=== PATIENT | female | born 1960 | race American Indian/Alaskan Native ===

== ENCOUNTER 2017-01-27 18:21 | Emergency (ER) | payer SELFPAY ==
--- NOTE | 2017-01-27 20:06 | Emergency Department Report ---
Chief Complaint: Chest Pain Stated Complaint: CHEST PAIN Time Seen by Provider: 01/27/17 20:03 - HPI History of Present Illness: Patient is a 56-year-old female that presents with left-sided chest pain 2 days and positive for shortness of breath. She denies nausea, vomiting, dizziness. And states she does not have a history of this chest pain. She cannot recall what makes it worse or what makes it better. She does admit that it is 3/10 she has a history of hypertension and she takes lisinopril 10 mg daily. - ROS Review of Systems: All other systems unremarkable except documentation in HPI - Exam Vital Signs: Vital Signs 01/27/17 19:28 Temperature 98.5 F Pulse Rate 101 H Respiratory 20 Rate Blood Pressure 143/97 [Right] O2 Sat by Pulse 100 Oximetry Physical Exam: Gen: Female well-developed and nourished, no apparent distress noted, ambulatory. Cardiovascular: Heart sounds present S1-S2, no murmur, gallop, edema or ectopy noted, 2+ pulses upper and lower extremities Respiratory: Chest symmetry with respirations, lungs clear to auscultate upper and lower lobes, respirations even and unlabored, no rales, rhonchi, crackles noted. MS: Reproducible tenderness to left chest wall. Psych: AxOx3, answers questions appropriately, mood full range, affect normal, normal speech and tone. MSE screening note: Focused history and physical exam performed. Due to findings the following was ordered: seen by provider, laboratory and radiology studies ordered, and to go to main ED to be seen by physician ED Medical Decision Making - Medical Decision Making seen by provider, laboratory and radiology studies ordered, and to go to main ED to be seen by physician ED Disposition for MSE Condition: Stable
[2017-01-27 21:07] LABS: Basophils % (Auto) 1.5 % (0.0-1.8); Eosinophils % (Auto) 2.9 % (0.0-4.3); Hematocrit 38.2 % (30.3-42.9); Hemoglobin 12.5 gm/dl (10.1-14.3); Mean Corpuscular HGB Conc 33 % (30-34); Mean Corpuscular Hemoglobin 31 pg (28-32); Mean Corpuscular Volume 94 fl (79-97); Platelet Count 175 K/mm3 (140-440); Red Blood Count 4.08 M/mm3 (3.65-5.03); White Blood Count 3.8 K/mm3 (4.5-11.0)
[2017-01-27 21:15] LABS: Red Cell Distribution Width 21.5 % (13.2-15.2)
[2017-01-27 21:28] LABS: Anion Gap 27 mmol/L; Blood Urea Nitrogen 8 mg/dL (7-17); Calcium 8.7 mg/dL (8.4-10.2); Carbon Dioxide 26 mmol/L (22-30); Chloride 98.7 mmol/L (98-107); Glucose 76 mg/dL (65-100); Potassium 3.4 mmol/L (3.6-5.0); Sodium 148 mmol/L (137-145)
[2017-01-28] MEDS ORDERED: NITROSTAT SL PRN (03:32)
--- NOTE | 2017-01-28 03:33 | Emergency Department Report ---
ED General Adult HPI - General Chief complaint: Chest Pain Stated complaint: CHEST PAIN Time Seen by Provider: 01/27/17 20:03 Source: patient, EMS (ems notes not available at time of chart dictation), RN notes reviewed, old records reviewed Mode of arrival: Ambulatory Limitations: No Limitations - History of Present Illness Initial comments: This is a 56-year-old female. She is previously unknown to me. Her primary care doctor is at [facility], but she hasn't really followed up. She has a past medical history of hypertension. Patient presents to the ER complaining of chest pain. Chest pain is upper and left chest. Associated with shortness of breath. Positive palpitations. Patient endorses recent trip to [place] 3 weeks ago. No cocaine use. No homicidality or suicidality. Occasional alcohol intake. No recent stress test that she can recall. She cannot describe exacerbating or relieving factors. There is no radiation of the chest pain. -: Gradual Location: chest Severity scale (0 -10): 3 Quality: aching Consistency: intermittent Improves with: none Worsens with: none Associated Symptoms: chest pain - Related Data Allergies Allergy/AdvReac Type Severity Reaction Status Date / Time No Known Allergies Allergy Unverified 01/21/17 17:53 ED Review of Systems ROS: Stated complaint: CHEST PAIN Other details as noted in HPI Constitutional: denies: fever Eyes: denies: vision change ENT: denies: epistaxis Respiratory: shortness of breath Cardiovascular: chest pain Gastrointestinal: denies: vomiting Musculoskeletal: denies: myalgia Skin: denies: lesions Neurological: denies: confusion Psychiatric: denies: suicidal thoughts ED Past Medical Hx - Past Medical History Previous Medical History?: Yes Hx Hypertension: Yes - Surgical History Past Surgical History?: Yes Additional Surgical History: tubal ligation - Social History Smoking Status: Never Smoker Substance Use Type: None ED Physical Exam - General Limitations: No Limitations General appearance: alert, in no apparent distress - Head Head exam: Present: atraumatic, normocephalic - Eye Eye exam: Present: normal appearance, EOMI. Absent: nystagmus - ENT ENT exam: Present: normal exam, normal orophraynx, mucous membranes moist, normal external ear exam - Neck Neck exam: Present: normal inspection, full ROM. Absent: tenderness, meningismus - Respiratory Respiratory exam: Present: normal lung sounds bilaterally. Absent: respiratory distress, wheezes, rales, rhonchi, stridor, chest wall tenderness, accessory muscle use, decreased breath sounds, prolonged expiratory - Cardiovascular Cardiovascular Exam: Present: regular rate, normal rhythm, normal heart sounds. Absent: bradycardia, tachycardia, irregular rhythm, systolic murmur, diastolic murmur, rubs, gallop - GI/Abdominal GI/Abdominal exam: Present: soft, normal bowel sounds. Absent: distended, tenderness, guarding, rebound, rigid, pulsatile mass - Extremities Exam Extremities exam: Present: normal inspection, full ROM, normal capillary refill. Absent: tenderness, pedal edema, joint swelling, calf tenderness - Back Exam Back exam: Present: normal inspection - Neurological Exam Neurological exam: Present: alert, oriented X3, other (Extraocular movements intact. Tongue midline. No facial droop. Facial sensation intact to light touch in the V1, V2, V3 distribution bilaterally. 5 and 5 strength in 4 extremities.. Sensation is intact to light touch in 4 extremities.). Absent: motor sensory deficit - Psychiatric Psychiatric exam: Absent: homicidal ideation, suicidal ideation - Skin Skin exam: Present: warm, dry, intact, normal color. Absent: rash ED Course Vital Signs 01/27/17 19:28 Temperature 98.5 F Pulse Rate 101 H Respiratory 20 Rate Blood Pressure 143/97 [Right] O2 Sat by Pulse 100 Oximetry - Reevaluation(s) Reevaluation #1: 01/28/17 04:42 Differential diagnosis: GERD, gastritis, acute coronary syndrome, pulmonary embolus Assessment and plan: 56-year-old female with chest pain and shortness of breath. Abnormal EKG, no prior for comparison. Multiple negative troponins. Has some vascular risk factors. Low risk by well's criteria, d-dimer is negative. Given abnormal EKG, description of symptoms, patient to be admitted for acute coronary syndrome risk stratification. X-ray of the chest is unremarkable, and a d-dimer was negative. Patient is somewhat intoxicated but pleasant, she is not homicidal or suicidal, and she is able to offer a fairly lucid history. The Hospital physician, Dr. Muhammad, accepts the patient to her service. ED Medical Decision Making - Lab Data Result diagrams: 01/27/17 20:56 01/27/17 20:56 Vital Signs 01/27/17 19:28 Temperature 98.5 F Pulse Rate 101 H Respiratory 20 Rate Blood Pressure 143/97 [Right] O2 Sat by Pulse 100 Oximetry Lab Results 01/27/17 01/27/17 01/27/17 Range/Units 20:56 20:56 20:56 WBC 3.8 L (4.5-11.0) K/mm3 RBC 4.08 (3.65-5.03) M/mm3 Hgb 12.5 (10.1-14.3) gm/dl Hct 38.2 (30.3-42.9) % MCV 94 (79-97) fl MCH 31 (28-32) pg MCHC 33 (30-34) % RDW 21.5 H (13.2-15.2) % Plt Count 175 (140-440) K/mm3 Lymph % (Auto) 49.4 H (13.4-35.0) % Sherman % (Auto) 8.1 H (0.0-7.3) % Eos % (Auto) 2.9 (0.0-4.3) % Baso % (Auto) 1.5 (0.0-1.8) % Lymph # 1.9 (1.2-5.4) K/mm3 Sherman # 0.3 (0.0-0.8) K/mm3 Eos # 0.1 (0.0-0.4) K/mm3 Baso # 0.1 (0.0-0.1) K/mm3 Seg Neutrophils % 38.1 L (40.0-70.0) % Seg Neutrophils # 1.5 L (1.8-7.7) K/mm3 D-Dimer (0-234) ng/mlDDU Sodium 148 H (137-145) mmol/L Potassium 3.4 L (3.6-5.0) mmol/L Chloride 98.7 (98-107) mmol/L Carbon Dioxide 26 (22-30) mmol/L Anion Gap 27 mmol/L BUN 8 (7-17) mg/dL Creatinine 0.4 L (0.7-1.2) mg/dL Estimated GFR > 60 ml/min BUN/Creatinine Ratio 20.00 % Glucose 76 (65-100) mg/dL Calcium 8.7 (8.4-10.2) mg/dL Troponin T < 0.010 (0.00-0.029) ng/mL HCG, Qual Negative (Negative) Plasma/Serum Alcohol (0-0.07) gm% 01/27/17 01/27/17 01/28/17 Range/Units 20:56 23:14 03:04 WBC (4.5-11.0) K/mm3 RBC (3.65-5.03) M/mm3 Hgb (10.1-14.3) gm/dl Hct (30.3-42.9) % MCV (79-97) fl MCH (28-32) pg MCHC (30-34) % RDW (13.2-15.2) % Plt Count (140-440) K/mm3 Lymph % (Auto) (13.4-35.0) % Sherman % (Auto) (0.0-7.3) % Eos % (Auto) (0.0-4.3) % Baso % (Auto) (0.0-1.8) % Lymph # (1.2-5.4) K/mm3 Sherman # (0.0-0.8) K/mm3 Eos # (0.0-0.4) K/mm3 Baso # (0.0-0.1) K/mm3 Seg Neutrophils % (40.0-70.0) % Seg Neutrophils # (1.8-7.7) K/mm3 D-Dimer (0-234) ng/mlDDU Sodium (137-145) mmol/L Potassium (3.6-5.0) mmol/L Chloride (98-107) mmol/L Carbon Dioxide (22-30) mmol/L Anion Gap mmol/L BUN (7-17) mg/dL Creatinine (0.7-1.2) mg/dL Estimated GFR ml/min BUN/Creatinine Ratio % Glucose (65-100) mg/dL Calcium (8.4-10.2) mg/dL Troponin T < 0.010 < 0.010 (0.00-0.029) ng/mL HCG, Qual (Negative) Plasma/Serum Alcohol 0.37 H (0-0.07) gm% 01/28/17 Range/Units 03:38 WBC (4.5-11.0) K/mm3 RBC (3.65-5.03) M/mm3 Hgb (10.1-14.3) gm/dl Hct (30.3-42.9) % MCV (79-97) fl MCH (28-32) pg MCHC (30-34) % RDW (13.2-15.2) % Plt Count (140-440) K/mm3 Lymph % (Auto) (13.4-35.0) % Sherman % (Auto) (0.0-7.3) % Eos % (Auto) (0.0-4.3) % Baso % (Auto) (0.0-1.8) % Lymph # (1.2-5.4) K/mm3 Sherman # (0.0-0.8) K/mm3 Eos # (0.0-0.4) K/mm3 Baso # (0.0-0.1) K/mm3 Seg Neutrophils % (40.0-70.0) % Seg Neutrophils # (1.8-7.7) K/mm3 D-Dimer 150.01 (0-234) ng/mlDDU Sodium (137-145) mmol/L Potassium (3.6-5.0) mmol/L Chloride (98-107) mmol/L Carbon Dioxide (22-30) mmol/L Anion Gap mmol/L BUN (7-17) mg/dL Creatinine (0.7-1.2) mg/dL Estimated GFR ml/min BUN/Creatinine Ratio % Glucose (65-100) mg/dL Calcium (8.4-10.2) mg/dL Troponin T (0.00-0.029) ng/mL HCG, Qual (Negative) Plasma/Serum Alcohol (0-0.07) gm% - EKG Data When compared to previous EKG there are: previous EKG unavailable 01/28/17 04:43 normal sinus, 86 bpm, left axis deviation, poor R progression noted, Q waves noted in the inferior leads, abnormal EKG, not morphologically consistent with STEMI. - Radiology Data Radiology results: image reviewed interpreted by me: X-ray of the chest is negative for acute disease. Critical care attestation.: If time is entered above; I have spent that time in minutes in the direct care of this critically ill patient, excluding procedure time. ED Disposition Clinical Impression: Abnormal EKG, Chest pain Disposition: OP ADMITTED IP TO THIS HOSP Is pt being admited?: Yes Does the pt Need Aspirin: Yes Condition: Good Instructions: Chest Pain (ED) Referrals: PRIMARY CARE,MD [Primary Care Provider] - 3-5 Days
[2017-01-28] MEDS ORDERED: BABY ASPIRIN PO ONE (04:44)
--- NOTE | 2017-01-28 04:51 | Admit Criteria Form ---
Admission Criteria Documentation: CARDIOLOGY GRG Clinical Indications for Admission to Inpatient Care ( Place 'X' for any and all applicable criteria): Hospital admission is needed for appropriate care of the patient because of ANY ONE of the following (1): [ ] I. Hemodynamic instability as indicated by ALL of the following (1)(2)(3) (4)(5) [ ]a) Vital signs or other findings not as expected for chronic patient condition or baseline [ ]b) Instability indicated by ANY ONE of the following: [ ]i) Hypotension [ ]ii) Symptomatic Tachycardia unresponsive to treatment ( e.g., analgesia, fluids, sedation as indicated) [ ]iii) Inadequate perfusion indicated by ANY ONE of the following: [ ] 1) Lactic acidosis (> 2 mmol/L) [ ] 2) New abnormal capillary refill (> 3 seconds) [ ] 3) Reduced urine output [ ] 4) New altered mental status [ ]iv) Orthostatic vital sign changes unresponsive to treatment (e.g., fluids) [ ]v) IV inotropic or vasopressor medication required to maintain adequate blood pressure or perfusion [ ] II. Severe heart failure as indicated by ANY ONE of the following(17)(18) [ ]a) Respiratory distress [ ]b) Hypotension [ ]c) Anasarca (refractory to outpatient therapy) [ ]d) Cardiac arrhythmias of immediate concern [ ]e) Myocardial ischemia [ ] III. Cardiac arrhythmias or findings of immediate concern indicated by ANY ONE of the following (19)(20): [ ] a) Heart rhythms that are inherently dangerous or unstable indicated by ANY ONE of the following (21)(22)(23): [ ] i) Resuscitated ventricular fibrillation or cardiac arrest [ ] ii) Ventricular escape rhythm [ ] iii) Sustained ventricular tachycardia (30 seconds or more of ventricular rhythm at greater than 100 beats per minute) [ ] iv) Nonsustained ventricular tachycardia and ANY ONE of the following: [ ] 1) Suspected cardiac ischemia as cause or consequence of ventricular tachycardia [ ] 2) In setting of acute myocarditis [ ] b) Unstable cardiac conduction defects indicated by ANY ONE of the following(23)(24)(25) [ ] i) Type II second-degree atrioventricular block [ ]ii) Third-degree atrioventricular block [ ]iii) New-onset left bundle branch block with suspected myocardial ischemia [ ]c) Any heart rhythm and ANY ONE of the following (21)(22)(26)(27) (28) [ ] i) Continuous long-term ECG monitoring needed (e.g., initiation of drug requiring monitoring for more than 24 hours) [ ] ii) Patient has automatic implanted cardioverter defibrillator that is repeatedly firing, malfunctioning, or in need of immediate adjustment of settings beyond the scope of ambulatory or observation care [ ]d) Heart rhythms of concern due to ANY ONE of the following: [ ] i) Hypotension [ ] ii) Respiratory distress [ ] iii) Association with other significant symptoms (e.g., bradycardia with syncope or ongoing dizziness, supraventricular tachycardia with chest pain (14)(15)(17) [ ] IV. Monitoring for cardiac contusion beyond the scope of observation care needed [A](30)(31)(32) [ ] V. Surgical or device complication (e.g., valve replacement complication , pacemaker dysfunction) (35)(41)(44)(45)(46) [ ] . Inpatient palliative care needed. [B](49) Also use Inpatient Palliative Care Criteria [ ] VII. Nonbacterial thrombotic (marantic) endocarditis (36)(43)(47)(48) [X ] VIII. Cardiology condition, symptom, or finding for which emergency and observation care has failed or are not considered appropriate. [ ] IX. Acute valvular disease requiring inpatient as indicated by ANY ONE of the following (41) [ ]a) Acute valvular regurgitation (42) [ ]b) Noninfectious valvulitis (43) [ ]c) Obstructive valve thrombosis [ ]d) Paravalvular leak [ ]e) Other significant valvular disorder remaining after emergency or observation level of care (as appropriate) [ ]X. Pericardial disease requiring inpatient treatment as indicated by ANY ONE of the following (33)(34)(35)(36)(37) [ ]a) Suspected tamponade (38)(39)(40) [ ]b) Hemopericardium [ ]c) Other significant pericardial disorder remaining after emergency or observation level of care (as appropriate) [ ] XI. Cardiac ischemia beyond scope of emergency and observation care. [ ] XII. Hypertension requiring inpatient treatment as indicated by ANY ONE of the following (6)(7)(8) [ ]a) SBP greater than 220 mm Hg or DBP greater than 120 mmHg despite treatment [ ]b) SBP greater than 140 mm Hg or DBP greater than 100 mm Hg with evidence of acute end organ damage as indicated by ANY ONE of the following [ ] i) Altered mental status [ ] ii) Acute renal failure as indicated by new onset of ANY ONE of the following (9)(10)(11)(12)(13) [ ]1) 3-fold rise in serum creatinine from baseline [ ]2) Serum creatinine greater than 4 mg/dL ( 354 micromoles/L) with acute rise greater than 0.5 mg/dL (44.2 micromoles/L) [ ]3) Reduction of more than 75% in estimated glomerular filtration rate from baseline [ ]4) Estimated glomerular filtration rate less than 35 mL/min/1.73m2 (0.59 mL/sec/1.73m2) in child up to 18 years of age [ ]5) Cessation of urine output indicated by ALL of the following [ ]A. Adequate volume status [ ]B. Inadequate urine output as indicated by ANY ONE of the following [ ]a. Urine output less than 0.3 mL/kg/hr for 24 hours [ ]b. Anuria (urine output less than 0.1 mL/kg/hr) for 12 hours [ ] iii) Aortic dissection [ ] iv) Myocardial Ischemia [ ] v) Left ventricular heart failure [ ]vi) Retinal Hemorrhage [ ]vii) Other significant finding [ ]c) Hypertension in child requiring inpatient treatment as indicated by ALL of the following(14)(15)(16) [ ] i) Outpatient treatment not effective, not available, or not appropriate [ ]ii) SBP or DBP greater than 95th percentile for age [ ]iii) Evidence of acute end organ damage as indicated by ANY ONE of the following [ ]1) Altered mental status [ ]2) Acute renal failure as indicated by new onset of ANY ONE of the following(9)(10)(11)(12)(13) [ ]A. 3-fold rise in serum creatinine from baseline [ ]B. Serum creatinine greater than 4 mg/dL (354 micromoles/L) with acute rise greater than 0.5 mg/dL (44.2 micromoles/L) [ ]C. Reduction of more than 75% in estimated glomerular filtration rate from baseline [ ]D. Estimated glomerular filtration rate less than 35 mL/min/1.73m2 (0.59 mL/sec/1.73m2) in child up to 18 years of age [ ]E. Cessation of urine output indicated by ALL of the following [ ]a. Adequate volume status [ ]b. Inadequate urine output as indicated by ANY ONE of the following [ ]i) Urine output less than 0.3 mL/kg/hr for 24 hours [ ]ii) Anuria ( urine output less than 0.1 mL/kg/hr) for 12 hours [ ]3) Severe headache [ ]4) Visual disturbance [ ]5) Retinal hemorrhage [ ]6) Other significant finding [ ]XIII. Complications of transplanted heart indicated by ANY ONE of the following(61): [ ]a) Acute graft rejection requiring inpatient management (eg, intravenous immunosuppression)(62)(63) [ ]b) Acute graft heart failure indicated by ANY ONE of the following(64): [ ]i) Hemodynamic instability [ ]ii) Cardiac arrhythmias of immediate concern [ ]iii) Pulmonary edema that is very severe (eg, mechanical ventilation needed, imminent or likely, need for 100% oxygen to keep oxygen saturation above 90%) [ ]iv) Pulmonary edema that is persistent as indicated by ALL of the following: [ ]1) New need for oxygen therapy to keep oxygen saturation above 90% (or increased FiO2 need from baseline) [ ]2) Has not improved sufficiently with emergency department or observation care IV diuretics or other heart failure treatments[E] [ ]v) Altered mental status that is severe or persistent [ ]vi) Increased creatinine (new on laboratory test) with reduction of more than 50% in estimated glomerular filtration rate from baseline [ ]vii) Progressively (ongoing) rising creatinine (known from past laboratory test) with reduction of more than 25% in estimated glomerular filtration rate from baseline [ ]viii) Acute renal failure [ ]ix) Acute peripheral ischemia (eg, examination shows pulseless, cool, mottled, or cyanotic extremity) [ ]x) Pulmonary artery catheter monitoring needed [ ]xi) Other sign or symptom of heart failure requiring inpatient treatment (ie, too severe or not responsive to outpatient and observation care treatment) [ ]c) Infection requiring inpatient management (eg, Hemodynamic instability, need for intravenous antimicrobial treatment)(66)(67)(68)(69)(70) [ ]d) Cardiac allograft vasculopathy requiring inpatient management ( eg evidence of cardiac ischemia)(71) [ ]e) Other complication of transplanted heart (eg, stroke, severe pulmonary hypertension, severe valvular dysfunction) requiring inpatient management(72) The original [facility] [employer] content created by [facility] has been revised. The portions of the content which have been revised are identified through the use of italic text or in bold, and [facility] has neither reviewed nor approved the modified material. All other unmodified content is copyright [facility] [employer]. Please see references footnoted in the original [facility] [employer] edition 2016 Admission Criteria Met: Yes
[2017-01-28 05:06] LABS: INR > 17.67 (0.87-1.13)
[2017-01-28] MEDS ORDERED: ASPIRIN ONE (06:52)
[2017-01-28 07:00] VITALS: BP 112/54
[2017-01-28 07:37] LABS: Urine Drugs of Abuse Note Disclamer
--- NOTE | 2017-01-28 07:46 | XRay Report ---
Single view chest: History: Chest pain, shortness of breath. Findings: Normal cardiomediastinal silhouette. Trachea is midline. No consolidation, pneumothorax or pleural effusion. Impression: No acute cardiopulmonary findings.
[2017-01-28 08:02] LABS: Bilirubin,Urine NEG (Negative); Blood,Urine NEG (Negative); Ketones,Urine TR mg/dL (Negative); Leukocyte Esterase,Urine TR (Negative); Mucus,Urine 1+ /HPF; Nitrite,Urine NEG (Negative); Urobilinogen,Urine < 2.0 mg/dL (<2.0)
[2017-01-28 08:25] LABS: INR 1.21 (0.87-1.13)
[2017-01-28] MEDS ORDERED: SODIUM CHLORIDE FLUSH SYRINGE 10 ML IV PRN (09:12)
[2017-01-28] MEDS ORDERED: DULCOLAX PR PRN (09:12)
[2017-01-28] MEDS ORDERED: MORPHINE IV PRN (09:12)
[2017-01-28] MEDS ORDERED: TYLENOL PO PRN (09:12)
[2017-01-28] MEDS ORDERED: MILK OF MAGNESIA PO PRN (09:12)
[2017-01-28] MEDS ORDERED: ZOFRAN IV PRN (09:12)
[2017-01-28] MEDS ORDERED: APRESOLINE IV PRN (09:17)
--- NOTE | 2017-01-28 09:24 | History and Physical Report ---
History of Present Illness Chief complaint: chest pain History of present illness: This is a 56-year-old female. She is previously unknown to me. Her primary care doctor is at [place], but she hasn't really followed up. She has a past medical history of hypertension. Patient presents to the ER complaining of chest pain. Chest pain is upper and left chest. Associated with shortness of breath. Positive palpitations. Patient endorses recent trip to [place] 3 weeks ago. No cocaine use. No homicidality or suicidality. Occasional alcohol intake. No recent stress test that she can recall. She cannot describe exacerbating or relieving factors. There is no radiation of the chest pain. Past History Past Medical History: hypertension Past Surgical History: Other (tubal ligation) Social history: alcohol abuse Family history: no significant family history Medications and Allergies Allergies Allergy/AdvReac Type Severity Reaction Status Date / Time No Known Allergies Allergy Verified 01/28/17 07:01 Home Medications Medication Instructions Recorded Confirmed Last Taken Type Lisinopril [Zestril TAB] 10 mg PO QDAY 01/28/17 01/28/17 Unknown History Active Meds: Active Medications Acetaminophen (Tylenol) 650 mg PO Q4H PRN PRN Reason: Pain MILD(1-3)/Fever >100.5/MARI Aspirin (Ecotrin) 325 mg PO QDAY LARON Bisacodyl (Dulcolax) 10 mg MA QDAY PRN PRN Reason: Constipation unrelieved by MOM Enoxaparin Sodium (Lovenox) 40 mg SUB-Q QDAY LARON Hydralazine HCl (Apresoline) 10 mg IV Q4HR PRN PRN Reason: BP >160/100 Potassium Chloride 20 meq/ (Dextrose) 1,010 mls @ 100 mls/hr IV DIRECT LARON Lisinopril (Zestril) 10 mg PO QDAY LARON Magnesium Hydroxide (Milk Of Magnesia) 30 ml PO Q4H PRN PRN Reason: Constipation Morphine Sulfate (Morphine) 2 mg IV Q4H PRN PRN Reason: Pain, Moderate (4-6) Nitroglycerin (Nitrostat) 0.4 mg SL .Q5MIN PRN PRN Reason: Chest Pain Ondansetron HCl (Zofran) 4 mg IV Q8H PRN PRN Reason: N/V unrelieved by Reglan Sodium Chloride (Sodium Chloride Flush Syringe 10 Ml) 10 ml IV PRN PRN PRN Reason: LINE FLUSH Review of Systems All systems: negative (as stated in HPI) Exam - Constitutional Vitals: Temp Pulse Resp BP Pulse Ox 98.9 F 91 H 16 112/54 92 01/28/17 07:25 01/28/17 06:59 01/28/17 06:59 01/28/17 06:59 01/28/17 06:59 General appearance: Present: no acute distress, well-nourished - EENT Eyes: Present: PERRL ENT: hearing intact, clear oral mucosa - Neck Neck: Present: supple, normal ROM - Respiratory Respiratory effort: normal Respiratory: bilateral: CTA - Cardiovascular Heart Sounds: Present: S1 & S2. Absent: rub, click - Extremities Extremities: pulses symmetrical, No edema Peripheral Pulses: within normal limits - Abdominal General gastrointestinal: Present: soft, non-tender, non-distended, normal bowel sounds Female genitourinary: Present: normal - Integumentary Integumentary: Present: clear, warm, dry - Musculoskeletal Musculoskeletal: gait normal, strength equal bilaterally - Psychiatric Psychiatric: appropriate mood/affect, intact judgment & insight - Neurologic Neurologic: CNII-XII intact, moves all extremities Results - Labs CBC & Chem 7: 01/27/17 20:56 01/27/17 20:56 Labs: Laboratory Last Values WBC 3.8 K/mm3 (4.5-11.0) L 01/27/17 20:56 RBC 4.08 M/mm3 (3.65-5.03) 01/27/17 20:56 Hgb 12.5 gm/dl (10.1-14.3) 01/27/17 20:56 Hct 38.2 % (30.3-42.9) 01/27/17 20:56 MCV 94 fl (79-97) 01/27/17 20:56 MCH 31 pg (28-32) 01/27/17 20:56 MCHC 33 % (30-34) 01/27/17 20:56 RDW 21.5 % (13.2-15.2) H 01/27/17 20:56 Plt Count 175 K/mm3 (140-440) 01/27/17 20:56 Lymph % (Auto) 49.4 % (13.4-35.0) H 01/27/17 20:56 Spink % (Auto) 8.1 % (0.0-7.3) H 01/27/17 20:56 Eos % (Auto) 2.9 % (0.0-4.3) 01/27/17 20:56 Baso % (Auto) 1.5 % (0.0-1.8) 01/27/17 20:56 Lymph # 1.9 K/mm3 (1.2-5.4) 01/27/17 20:56 Spink # 0.3 K/mm3 (0.0-0.8) 01/27/17 20:56 Eos # 0.1 K/mm3 (0.0-0.4) 01/27/17 20:56 Baso # 0.1 K/mm3 (0.0-0.1) 01/27/17 20:56 Seg Neutrophils % 38.1 % (40.0-70.0) L 01/27/17 20:56 Seg Neutrophils # 1.5 K/mm3 (1.8-7.7) L 01/27/17 20:56 PT 15.2 Sec. (12.2-14.9) H 01/28/17 07:59 INR 1.21 (0.87-1.13) H 01/28/17 07:59 D-Dimer 150.01 ng/mlDDU (0-234) 01/28/17 03:38 Sodium 148 mmol/L (137-145) H 01/27/17 20:56 Potassium 3.4 mmol/L (3.6-5.0) L 01/27/17 20:56 Chloride 98.7 mmol/L (98-107) 01/27/17 20:56 Carbon Dioxide 26 mmol/L (22-30) 01/27/17 20:56 Anion Gap 27 mmol/L 01/27/17 20:56 BUN 8 mg/dL (7-17) 01/27/17 20:56 Creatinine 0.4 mg/dL (0.7-1.2) L 01/27/17 20:56 Estimated GFR > 60 ml/min 01/27/17 20:56 BUN/Creatinine Ratio 20.00 % 01/27/17 20:56 Glucose 76 mg/dL (65-100) 01/27/17 20:56 Calcium 8.7 mg/dL (8.4-10.2) 01/27/17 20:56 Troponin T < 0.010 ng/mL (0.00-0.029) 01/28/17 03:04 HCG, Qual Negative (Negative) 01/27/17 20:56 Urine Color Yellow (Yellow) 01/28/17 07:25 Urine Turbidity Clear (Clear) 01/28/17 07:25 Urine pH 6.0 (5.0-7.0) 01/28/17 07:25 Ur Specific [place] 1.015 (1.003-1.030) 01/28/17 07:25 Urine Protein 30 mg/dl mg/dL (Negative) 01/28/17 07:25 Urine Glucose (UA) Neg mg/dL (Negative) 01/28/17 07:25 Urine Ketones Tr mg/dL (Negative) 01/28/17 07:25 Urine Blood Neg (Negative) 01/28/17 07:25 Urine Nitrite Neg (Negative) 01/28/17 07:25 Urine Bilirubin Neg (Negative) 01/28/17 07:25 Urine Urobilinogen < 2.0 mg/dL (<2.0) 01/28/17 07:25 Ur Leukocyte Esterase Tr (Negative) 01/28/17 07:25 Urine WBC (Auto) 3.0 /HPF (0.0-6.0) 01/28/17 07:25 Urine RBC (Auto) 5.0 /HPF (0.0-6.0) 01/28/17 07:25 U Epithel Cells (Auto) 7.0 /HPF (0-13.0) 01/28/17 07:25 Urine Mucus 1+ /HPF 01/28/17 07:25 Plasma/Serum Alcohol 0.37 gm% (0-0.07) H 01/27/17 20:56 Assessment and Plan Assessment and plan: 56-year-old woman with past medical history of hypertension and alcohol abuse who presented to the hospital complaining of chest pain 1. Chest pain Serial troponins, chest x-ray was negative, will obtain stress test 2. Alcohol abuse Patient was visibly intoxicated in the ER, continue IV fluids, thiamine, folate
[2017-01-28] MEDS ORDERED: KCL 20 MEQ in D5W 1,000 ML IV SCH (09:30)
[2017-01-28] MEDS ORDERED: ZESTRIL PO SCH (10:00)
[2017-01-28] MEDS ORDERED: LOVENOX SUB-Q SCH (10:00)
[2017-01-28] MEDS ORDERED: ATIVAN IV PRN ×3 (12:25)
[2017-01-28] MEDS ORDERED: VITAMIN B-1 PO SCH (13:00)
[2017-01-28] MEDS ORDERED: FOLVITE PO SCH (13:00)
[2017-01-29] MEDS ORDERED: ECOTRIN PO SCH (10:00)
== END 2017-01-28 09:28 | disposition admitted as inpatient to this hospital (09) ==
LOC: ED 18:21
DX: R94.31 Abnormal electrocardiogram [ECG] [EKG] (principal); R07.9 Chest pain, unspecified; I10 Essential (primary) hypertension
CPT/HCPCS: 36415; 71010; 80048; 80307; 81001; 84484; 84703; 85025; 85379; 85610; 93005; 93010; 99285; G0480; 80320

== ENCOUNTER 2017-05-14 22:45 | Emergency (ER) | payer SELFPAY ==
[2017-05-14 23:09] VITALS: BP 138/97
[2017-05-14 23:33] LABS: Basophils % (Auto) 1.7 % (0.0-1.8); Eosinophils % (Auto) 2.4 % (0.0-4.3); Hematocrit 33.7 % (30.3-42.9); Hemoglobin 11.1 gm/dl (10.1-14.3); Mean Corpuscular HGB Conc 33 % (30-34); Mean Corpuscular Hemoglobin 31 pg (28-32); Mean Corpuscular Volume 95 fl (79-97); Platelet Count 246 K/mm3 (140-440); Red Blood Count 3.57 M/mm3 (3.65-5.03); White Blood Count 4.8 K/mm3 (4.5-11.0)
[2017-05-14 23:36] LABS: Red Cell Distribution Width 21.8 % (13.2-15.2)
[2017-05-14 23:43] LABS: INR 1.15 (0.87-1.13)
[2017-05-14 23:44] LABS: Partial Thromboplastin Time 30.5 Sec. (24.2-36.6)
[2017-05-14 23:56] LABS: Anion Gap 21 mmol/L; Blood Urea Nitrogen 10 mg/dL (7-17); Calcium 8.7 mg/dL (8.4-10.2); Carbon Dioxide 25 mmol/L (22-30); Chloride 101.1 mmol/L (98-107); Glucose 94 mg/dL (65-100); Potassium 3.1 mmol/L (3.6-5.0); Sodium 144 mmol/L (137-145)
== END 2017-05-15 05:32 | disposition left against medical advice (07) ==
LOC: ED 22:45
DX: R07.89 Other chest pain (principal); R42 Dizziness and giddiness; I10 Essential (primary) hypertension; R11.0 Nausea; Z53.21 Procedure and treatment not carried out due to patient leaving prior to being seen by health care provider
CPT/HCPCS: 36415; 80048; 84484; 85025; 85610; 85730; 93005; 93010